=== PATIENT | female | born 1970 | race Caucasian/White ===

== ENCOUNTER 2023-04-08 21:26 | Emergency (ER) | payer MEDICAID ==
[~2023-04-08] VITALS: Ht 167.6 cm; Wt 102.1 kg
[2023-04-08 21:40] VITALS: BP 170/100; PULSE 61; RESP 17; TEMP 97.7; O2SAT 98
[2023-04-09] MEDS ORDERED: ACET-10509 PO (01:24)
[2023-04-09] MEDS ORDERED: IBUP-2213 PO (01:24)
[2023-04-09] MEDS ORDERED: CLIN300C2 PO (01:25)
[2023-04-09] MEDS ORDERED: ACETAMINOPHEN EXTRA STRENGTH 500 MG TAB PO ONE (01:25)
[2023-04-09] MEDS ORDERED: IBUPROFEN 600 MG TAB PO ONE (01:25)
[2023-04-09 01:56] VITALS: BP 145/95; PULSE 61; RESP 17; TEMP 97.9; O2SAT 98
== END 2023-04-09 01:56 | disposition home or self-care (01) ==
LOC: MED 21:26
DX: K02.9 Dental caries, unspecified (principal); Z79.899 Other long term (current) drug therapy; Z79.1 Long term (current) use of non-steroidal anti-inflammatories (NSAID); Z79.2 Long term (current) use of antibiotics; Z88.0 Allergy status to penicillin
CPT/HCPCS: 99283